=== PATIENT | male | born 1995 | race Caucasian/White ===

== ENCOUNTER 2020-11-30 12:05 | Inpatient (IN) | payer MEDICARE, MEDICAID ==
[~2020-11-30] VITALS: Ht 188 cm; Wt 87.4 kg
--- NOTE | 2020-11-30 12:10 | NUR ---
pt ANNELIESE APARICIO as a transfer from [facility] for evaluation of RUQ pain. 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 no other c/o. ambulatory and in no apparent distress. SO at bedside. EKG at bedside
--- NOTE | 2020-11-30 12:22 | NUR ---
report to Sandi VELASCO for lunch
[2020-11-30] MEDS ORDERED: ONDANSETRON 2MG/ML, 2ML ONE (12:39)
[2020-11-30] MEDS ORDERED: MORPHINE SULFATE 4 MG/ML, 1ML ONE (12:40)
--- NOTE | 2020-11-30 12:44 | NUR ---
TASK RN: PT MEDICATED PER EMAR FOR 03/04 ABD PAIN. BP/SPO2 MONITOR IN PLACE.
[2020-11-30] MEDS ORDERED: METR500T PO (12:46)
[2020-11-30] MEDS ORDERED: MORPHINE SULFATE 4 MG/ML, 1ML IVPush PRN (13:00)
[2020-11-30] MEDS ORDERED: SODIUM CHLORIDE FLUSH 10ML SYR IVF ONE (13:00)
[2020-11-30] MEDS ORDERED: ONDANSETRON 2MG/ML, 2ML IVPush ONE (13:00)
[2020-11-30 13:05] LABS: BASOPHILS % (AUTO) 0 % (0-1); EOSINOPHILS % (AUTO) 1 % (1-7); LYMPHOCYTES % (AUTO) 25 % (22-44); MEAN CORPUSCULAR HEMOGLOBIN 32.9 pg (27.5-34.5); MEAN PLATELET VOLUME 7.6 fL (7.4-10.4); MONOCYTES % (AUTO) 8 % (2-9); NEUTROPHILS % (AUTO) 66 % (42-75); PLATELET COUNT 169 x10^3/uL (130-400); RED BLOOD COUNT 4.75 x10^6/uL (4.38-5.82); RED CELL DISTRIBUTION WIDTH 13.2 % (9.4-14.8)
[2020-11-30 13:06] LABS: MD NO
[2020-11-30 13:12] LABS: ALANINE AMINOTRANSFERASE 705 U/L (12-78); ALBUMIN 3.9 g/dL (3.4-5.0); ANION GAP 7 mmol/L (5-15); CALCIUM 8.8 mg/dL (8.5-10.1); CHLORIDE 108 mmol/L (98-107); CREATININE 1.14 mg/dL (0.7-1.3)
[2020-11-30 13:15] LABS: ALKALINE PHOSPHATASE 136 U/L (45-117); BILIRUBIN,TOTAL 2.5 mg/dL (0.2-1.0); TOTAL PROTEIN 7.3 g/dL (6.4-8.2)
--- NOTE | 2020-11-30 13:19 | NUR ---
pt in MRI
--- NOTE | 2020-11-30 13:50 | NUR ---
pt still in MRI. report to Leela VELASCO
--- NOTE | 2020-11-30 14:15 | NUR ---
pt has been returned to room from MRI. resitng on gurney in no apparent distress. pt to be admitted and admit MD at bedside for eval pt updated on POC and SO at bedside notified regarding current visitor restrictions and practices
[2020-11-30] MEDS ORDERED: POLYETHYLENE GLYCOL 17 GM PACKET PO PRN (14:30)
[2020-11-30] MEDS ORDERED: ACETAMINOPHEN 500 MG TABLET PO PRN (14:30)
[2020-11-30] MEDS ORDERED: SENNA/DOCUSATE TABLET PO PRN (14:30)
[2020-11-30] MEDS ORDERED: ONDANSETRON ODT 4 MG PO PRN (14:30)
--- NOTE | 2020-11-30 14:36 | NUR ---
awaiting transport for admission
[2020-11-30 15:00] VITALS: BP 125/69
[2020-11-30] MEDS: KETOROLAC 30 MG/1 ML IV PRN (15:44)
[2020-11-30] MEDS: LACTATED RINGERS 1,000 ML IV SCH ×2 (15:49→23:31)
[2020-11-30] MEDS: morphine SULFATE 10 MG/ML, 1ML IVPush PRN ×2 (17:44→20:55)
[2020-11-30 19:22] VITALS: BP 118/70
[2020-11-30] MEDS: MELATONIN 5 MG TABLET PO PRN (20:54)
[2020-12-01] MEDS: morphine SULFATE 10 MG/ML, 1ML IVPush PRN ×5 (00:04→18:52)
[2020-12-01 00:09] VITALS: BP 108/66
[2020-12-01 05:36] LABS: BASOPHILS % (AUTO) 1 % (0-1); EOSINOPHILS % (AUTO) 2 % (1-7); LYMPHOCYTES % (AUTO) 38 % (22-44); MEAN CORPUSCULAR HEMOGLOBIN 33.1 pg (27.5-34.5); MEAN CORPUSCULAR HGB CONC 34.7 g/dL (33.2-36.2); MEAN PLATELET VOLUME 7.5 fL (7.4-10.4); MONOCYTES % (AUTO) 8 % (2-9); NEUTROPHILS % (AUTO) 50 % (42-75); PLATELET COUNT 142 x10^3/uL (130-400); RED BLOOD COUNT 4.46 x10^6/uL (4.38-5.82); RED CELL DISTRIBUTION WIDTH 13.1 % (9.4-14.8)
[2020-12-01 05:44] LABS: INTERNATIONAL NORMALIZED RATIO 0.98 (0.93-1.1); PROTHROMBIN TIME 10.5 Seconds (9.6-11.5)
[2020-12-01 05:48] LABS: MD NO
[2020-12-01 05:54] LABS: CHLORIDE 109 mmol/L (98-107)
[2020-12-01 06:03] LABS: ALANINE AMINOTRANSFERASE 715 U/L (12-78); ALBUMIN 3.5 g/dL (3.4-5.0); ALKALINE PHOSPHATASE 125 U/L (45-117); ANION GAP 5 mmol/L (5-15); CALCIUM 8.7 mg/dL (8.5-10.1); CREATININE 1.07 mg/dL (0.7-1.3); TOTAL PROTEIN 6.6 g/dL (6.4-8.2)
[2020-12-01 07:02] VITALS: BP 124/76
[2020-12-01] MEDS: LACTATED RINGERS 1,000 ML IV SCH ×2 (07:43→13:50)
[2020-12-01] MEDS: ONDANSETRON 2MG/ML, 2ML IVPush PRN ×2 (08:16→18:12)
[2020-12-01] MEDS ORDERED: CHLORHEXIDINE 15 ML UDC PO ONE (13:30)
[2020-12-01] MEDS ORDERED: FENTANYL PF 250 MCG/5ML ONE (13:41)
[2020-12-01] MEDS ORDERED: MIDAZOLAM 1 MG/ML, 2ML ONE (13:41)
[2020-12-01] MEDS ORDERED: OMNIPAQUE 350 MG/ML, 50 ML BOTTLE ONE (14:02)
[2020-12-01] MEDS ORDERED: PROPOFOL 10 MG/ML, 20ML ONE (14:37)
[2020-12-01] MEDS ORDERED: SUCCINYLCHOLINE 20 MG/ML, 10ML ONE (14:37)
[2020-12-01] MEDS ORDERED: ROCURONIUM 10 MG/ML,10ML ONE (14:37)
[2020-12-01] MEDS ORDERED: ONDANSETRON 2MG/ML, 2ML ONE ×2 (14:37→16:29)
[2020-12-01] MEDS ORDERED: FENTANYL PF 100 MCG/2ML IV PRN (15:30)
[2020-12-01] MEDS ORDERED: PROMETHAZINE 25 MG/ML, 1ML IVPush PRN (15:30)
[2020-12-01] MEDS ORDERED: hydrALAzine 20 MG/ML, 1ML IV PRN (15:30)
[2020-12-01] MEDS ORDERED: LACTATED RINGERS 1,000 ML IVBOLUS ONE (15:30)
[2020-12-01] MEDS ORDERED: MEPERIDINE/PF 25MG/0.5ML IVPush PRN (15:30)
[2020-12-01] MEDS ORDERED: HYDROmorphone 1 MG/ML, 1ML INJ IVPush PRN (15:30)
[2020-12-01] MEDS ORDERED: KETOROLAC 30 MG/1 ML IV PRN (15:30)
[2020-12-01] MEDS ORDERED: HALOPERIDOL 5 MG/ML IV PRN (15:30)
[2020-12-01] MEDS ORDERED: EPHEDRINE 50 MG/ML, 1ML IVPush PRN (15:30)
[2020-12-01] MEDS ORDERED: ACETAMINOPHEN 325 MG TABLET PO PRN (15:30)
[2020-12-01] MEDS ORDERED: METOPROLOL 1 MG/ML, 5ML IV PRN (15:30)
[2020-12-01] MEDS ORDERED: ONDANSETRON 2MG/ML, 2ML IVPush PRN (15:30)
[2020-12-01] MEDS ORDERED: LABETALOL 5MG/ML, 20ML IV PRN (15:30)
[2020-12-01] MEDS ORDERED: ALBUTEROL SULFATE 2.5 MG/3 ML NPPB PRN (15:30)
[2020-12-01] MEDS ORDERED: DIPHENHYDRAMINE 50 MG/ML, 1ML IVPush PRN (15:30)
[2020-12-01] MEDS ORDERED: METOCLOPRAMIDE 5 MG/ML, 2ML IVPush PRN (15:30)
[2020-12-01] MEDS ORDERED: DIAZEPAM 5 MG/ML, 2ML IVPush PRN (15:30)
[2020-12-01] MEDS ORDERED: OXYcodone 5 MG/5 ML ORAL.SOL UDC PO PRN (15:30)
[2020-12-01] MEDS ORDERED: INDOMETHACIN 50 MG SUPP.RECT ONE (15:43)
[2020-12-01] MEDS ORDERED: LEVOFLOXACIN/PMX 500MG/100ML 100 ML IV SCH (16:00)
[2020-12-01] MEDS ORDERED: INDOMETHACIN 50 MG SUPP.RECT PR ONE (16:00)
[2020-12-01] MEDS ORDERED: LEVOFLOXACIN/PMX 500MG/100ML 100 ML IV ONE (16:00)
[2020-12-01] MEDS ORDERED: METOCLOPRAMIDE 5 MG/ML, 2ML ONE (16:41)
[2020-12-01] MEDS ORDERED: FENTANYL PF 100 MCG/2ML ONE (16:41)
[2020-12-01] MEDS ORDERED: KETOROLAC 30 MG/1 ML ONE (16:47)
[2020-12-01] MEDS ORDERED: PROMETHAZINE 25 MG/ML, 1ML ONE (17:01)
[2020-12-01 19:36] VITALS: BP 118/75
[2020-12-01] MEDS: MELATONIN 5 MG TABLET PO PRN (20:43)
[2020-12-02] MEDS: LACTATED RINGERS 1,000 ML IV SCH ×3 (00:16→22:15)
[2020-12-02 00:18] VITALS: BP 114/72
[2020-12-02] MEDS: KETOROLAC 30 MG/1 ML IV PRN ×3 (05:02→20:32)
[2020-12-02 06:59] VITALS: BP 137/83
[2020-12-02 08:04] LABS: BASOPHILS % (AUTO) 0 % (0-1); EOSINOPHILS % (AUTO) 1 % (1-7); LYMPHOCYTES % (AUTO) 27 % (22-44); MEAN CORPUSCULAR HEMOGLOBIN 32.6 pg (27.5-34.5); MEAN CORPUSCULAR HGB CONC 34.2 g/dL (33.2-36.2); MEAN PLATELET VOLUME 7.7 fL (7.4-10.4); MONOCYTES % (AUTO) 6 % (2-9); NEUTROPHILS % (AUTO) 66 % (42-75); PLATELET COUNT 154 x10^3/uL (130-400); RED BLOOD COUNT 4.38 x10^6/uL (4.38-5.82); RED CELL DISTRIBUTION WIDTH 12.8 % (9.4-14.8)
[2020-12-02 08:05] LABS: MD NO
[2020-12-02 08:14] LABS: ALANINE AMINOTRANSFERASE 767 U/L (12-78); ALBUMIN 3.4 g/dL (3.4-5.0); CALCIUM 8.7 mg/dL (8.5-10.1); CREATININE 1.02 mg/dL (0.7-1.3)
[2020-12-02 08:16] LABS: ALKALINE PHOSPHATASE 117 U/L (45-117); BILIRUBIN,TOTAL 1.5 mg/dL (0.2-1.0); TOTAL PROTEIN 6.8 g/dL (6.4-8.2)
[2020-12-02 08:30] LABS: ANION GAP 5 mmol/L (5-15); CHLORIDE 107 mmol/L (98-107)
[2020-12-02] MEDS: morphine SULFATE 10 MG/ML, 1ML IVPush PRN ×3 (09:51→18:07)
[2020-12-02] MEDS: ONDANSETRON 2MG/ML, 2ML IVPush PRN (09:51)
[2020-12-02 13:25] VITALS: BP 130/80
[2020-12-02] MEDS ORDERED: BUPIVACAINE/PF 0.5% ONE (18:56)
[2020-12-02] MEDS ORDERED: EPINEPHRINE 1 MG/ML, 1ML ONE (18:56)
[2020-12-02] MEDS ORDERED: PROPOFOL 50 ML ONE (19:09)
[2020-12-02] MEDS ORDERED: MIDAZOLAM 1 MG/ML, 2ML ONE (19:09)
[2020-12-02] MEDS ORDERED: FENTANYL PF 250 MCG/5ML ONE (19:09)
[2020-12-02] MEDS ORDERED: CEFAZOLIN 1,000 MG ONE ×2 (19:54)
[2020-12-02] MEDS ORDERED: SUCCINYLCHOLINE 20 MG/ML, 10ML ONE (19:54)
[2020-12-02] MEDS ORDERED: ROCURONIUM 10MG/ML,5ML ONE (19:54)
[2020-12-02] MEDS ORDERED: ONDANSETRON 2MG/ML, 2ML ONE (19:54)
[2020-12-02] MEDS ORDERED: DEXAMETHASONE 4 MG/ML, 1ML ONE (19:54)
[2020-12-02] MEDS ORDERED: KETOROLAC 30 MG/1 ML ONE ×2 (19:54→20:28)
[2020-12-02] MEDS ORDERED: morphine SULFATE 10 MG/ML, 1ML IVPush PRN (20:00)
[2020-12-02] MEDS ORDERED: DIAZEPAM 5 MG/ML, 2ML IVPush PRN (20:00)
[2020-12-02] MEDS ORDERED: EPHEDRINE 50 MG/ML, 1ML IM PRN (20:00)
[2020-12-02] MEDS ORDERED: DIPHENHYDRAMINE 50 MG/ML, 1ML IVPush PRN (20:00)
[2020-12-02] MEDS ORDERED: MEPERIDINE/PF 25MG/0.5ML IVPush PRN (20:00)
[2020-12-02] MEDS ORDERED: MIDAZOLAM 1 MG/ML, 2ML IV PRN (20:00)
[2020-12-02] MEDS ORDERED: FENTANYL PF 100 MCG/2ML IV PRN (20:00)
[2020-12-02] MEDS ORDERED: PROMETHAZINE 25 MG/ML, 1ML IVPush PRN (20:00)
[2020-12-02] MEDS ORDERED: ONDANSETRON 2MG/ML, 2ML IVPush PRN (20:00)
[2020-12-02] MEDS ORDERED: LABETALOL 5MG/ML, 20ML IV PRN (20:00)
[2020-12-02] MEDS ORDERED: OXYcodone 5 MG/5 ML ORAL.SOL UDC PO PRN (20:00)
[2020-12-02] MEDS ORDERED: EPHEDRINE 50 MG/ML, 1ML IVPush PRN (20:00)
[2020-12-02] MEDS ORDERED: PROMETHAZINE 25 MG/ML, 1ML ONE (20:14)
[2020-12-02] MEDS ORDERED: ACETAMINOPHEN 650 MG/20.3 ML UDC ONE (20:28)
[2020-12-02] MEDS ORDERED: OXYcodone 5 MG/5 ML ORAL.SOL UDC ONE (20:29)
[2020-12-03] MEDS: morphine SULFATE 10 MG/ML, 1ML IVPush PRN ×2 (01:37→06:06)
[2020-12-03 01:53] VITALS: BP 121/76
[2020-12-03] MEDS: KETOROLAC 30 MG/1 ML IV PRN (04:09)
[2020-12-03] MEDS: LACTATED RINGERS 1,000 ML IV SCH (04:11)
[2020-12-03 06:41] LABS: BASOPHILS % (AUTO) 0 % (0-1); EOSINOPHILS % (AUTO) 0 % (1-7); LYMPHOCYTES % (AUTO) 7 % (22-44); MEAN CORPUSCULAR HEMOGLOBIN 32.7 pg (27.5-34.5); MEAN CORPUSCULAR HGB CONC 34.1 g/dL (33.2-36.2); MEAN PLATELET VOLUME 7.7 fL (7.4-10.4); MONOCYTES % (AUTO) 6 % (2-9); NEUTROPHILS % (AUTO) 87 % (42-75); PLATELET COUNT 150 x10^3/uL (130-400); RED BLOOD COUNT 4.33 x10^6/uL (4.38-5.82); RED CELL DISTRIBUTION WIDTH 12.8 % (9.4-14.8)
[2020-12-03 06:43] LABS: MD NO
[2020-12-03 06:54] LABS: ALANINE AMINOTRANSFERASE 725 U/L (12-78); ALBUMIN 3.3 g/dL (3.4-5.0); ANION GAP 5 mmol/L (5-15); CALCIUM 8.6 mg/dL (8.5-10.1); CHLORIDE 105 mmol/L (98-107); CREATININE 1.05 mg/dL (0.7-1.3)
[2020-12-03 06:56] LABS: ALKALINE PHOSPHATASE 108 U/L (45-117); TOTAL PROTEIN 6.6 g/dL (6.4-8.2)
[2020-12-03 07:18] VITALS: BP 133/81
[2020-12-03] MEDS ORDERED: HYDROcodone/APAP 5/325 TABLET PO PRN (09:00)
[2020-12-03] MEDS ORDERED: HYDR-2214 PO (10:20)
[2020-12-03] MEDS ORDERED: SENN-220 PO (10:20)
== END 2020-12-03 11:11 | disposition home or self-care (01) | DRG 419 ==
LOC: SUATTDRO 13:02 → ED 14:37 → 4NW 15:00 → DCLOUNGE 12-03 10:54
PROVIDERS: ADMIT Internal Medicine; ATTEND Family Medicine
PROC: 0F798ZZ Dilation of Common Bile Duct, Via Natural or Artificial Opening Endoscopic (ICD-10-PCS; 2020-12-01)
PROC: 0F778ZZ Dilation of Common Hepatic Duct, Via Natural or Artificial Opening Endoscopic (ICD-10-PCS; 2020-12-01)
PROC: BF131ZZ Fluoroscopy of Gallbladder and Bile Ducts using Low Osmolar Contrast (ICD-10-PCS; 2020-12-01)
PROC: 0FT44ZZ Resection of Gallbladder, Percutaneous Endoscopic Approach (ICD-10-PCS; principal; 2020-12-02 19:00)
DX: K80.71 Calculus of gallbladder and bile duct without cholecystitis with obstruction (principal); F12.90 Cannabis use, unspecified, uncomplicated; F17.200 Nicotine dependence, unspecified, uncomplicated; F31.9 Bipolar disorder, unspecified; Z20.822 Contact with and (suspected) exposure to COVID-19; R94.5 Abnormal results of liver function studies; Z72.89 Other problems related to lifestyle; Z80.0 Family history of malignant neoplasm of digestive organs; Y93.89 Activity, other specified; Y92.89 Other specified places as the place of occurrence of the external cause; Y99.8 Other external cause status
CPT/HCPCS: 27093; 36415; 74181; 74328; 80053; 80074; 83690; 85025; 85610; 87040; 87635; 88304; 93005; 96374; 96375; G0378; J0171; J0690; J1100; J1885; J1956; J2250; J2405; J2550; J2704; J3010; Q9967; C1769; J0330; J1630; J2270; J2765; J7120